=== PATIENT | female | born 1955 | race Caucasian/White ===

== ENCOUNTER 2022-09-02 12:25 | Emergency (ER) | payer MEDICAID, OTHER ==
[~2022-09-02] VITALS: Ht 162.6 cm; Wt 72.0 kg
[2022-09-02] MEDS ORDERED: MECLIZINE 25MG TABLET PO ONE (13:15)
[2022-09-02 16:03] LABS: CLARITY URINE CLEAR (CLEAR); COLOR URINE YELLOW (YELLOW); KETONES URINE NEGATIVE (NEGATIVE); LEUKOCYTE ESTERASE URINE TRACE (NEGATIVE); NITRITE URINE NEGATIVE (NEGATIVE); OCCULT BLOOD URINE NEGATIVE (NEGATIVE); PROTEIN URINE NEGATIVE (NEGATIVE); SPECIFIC GRAVITY URINE 1.009 (1.005-1.030); UROBILINOGEN URINE 0.2 E.U./dL (0.2-1.0)
[2022-09-02 16:44] LABS: BASOPHILS % 1.8 % (0.0-2.0); EOSINOPHILS % 2.8 % (0.0-5.0); HEMATOCRIT. 41.6 % (36.0-48.0); HEMOGLOBIN. 13.6 g/dL (12.0-16.0); MEAN CORPUSCULAR HEMOGLOBIN 28.8 pg (28.0-32.0); MEAN PLATELET VOLUME 10.1 fl (7.4-10.4); NEUTROPHILS % 53.4 % (40.0-76.0); PLATELET 122 x1000/uL (130-400); RED BLOOD CELL COUNT 4.73 mill/uL (4.2-5.4); RED CELL DISTRIBUTION WIDTH 14.2 % (11.6-14.6)
[2022-09-02 16:53] LABS: CHLORIDE 112 mEq/L (98-107)
[2022-09-02] MEDS ORDERED: MECL-159 MT (17:22)
[2022-09-02 18:10] VITALS: BP 183/118
== END 2022-09-02 18:11 | disposition home or self-care (01) ==
LOC: ER 12:25
DX: H81.10 Benign paroxysmal vertigo, unspecified ear (principal)
CPT/HCPCS: 36415; 70450; 71045; 80053; 81003; 84484; 85025; 99285; J8597

== ENCOUNTER 2024-08-09 18:54 | Emergency (ER) | payer OTHER ==
[~2024-08-09] VITALS: Ht 170.2 cm; Wt 86.0 kg
[~2024-08-09 18:54] MED LIST: MECL-299 MT
[2024-08-09 19:32] VITALS: TEMP 36.8; O2SAT 98
[2024-08-09 21:09] LABS: EOSINOPHILS % 2.2 % (0.0-5.0); HEMATOCRIT. 41.3 % (36.0-48.0); HEMOGLOBIN. 13.5 g/dL (12.0-16.0); LYMPHOCYTES % 27.4 % (20.0-50.0); MEAN CORPUSCULAR HEMOGLOBIN 27.1 pg (28.0-32.0); MEAN CORPUSCULAR HGB CONC 32.7 g/dL (31.0-37.0); MEAN CORPUSCULAR VOLUME 82.9 fL (81.0-99.0); MEAN PLATELET VOLUME 9.3 fl (7.4-10.4); MONOCYTES % 9.2 % (2.0-8.0); NEUTROPHILS % 60.2 % (40.0-76.0); PLATELET 132 x1000/uL (130-400); RED BLOOD CELL COUNT 4.98 mill/uL (4.2-5.4); RED CELL DISTRIBUTION WIDTH 14.9 % (11.6-14.6); WHITE BLOOD COUNT 5.9 x1000/uL (4.5-11.0)
[2024-08-09 21:16] LABS: CHLORIDE 109 mEq/L (98-107); POTASSIUM 4.1 mEq/L (3.5-5.1); SODIUM 145 mEq/L (136-145)
[2024-08-09 21:17] LABS: CALCIUM 9.1 mg/dL (8.7-10.4); CARBON DIOXIDE 31 mEq/L (21-32)
[2024-08-09 21:22] LABS: CREATININE 0.6 mg/dL (0.6-1.0); GLUCOSE 132 mg/dL (70-105); UREA NITROGEN BLOOD 11 mg/dL (9-23)
[2024-08-09 21:25] LABS: PROTHROMBIN TIME 11.5 sec (9.6-11.0)
[2024-08-09 21:37] LABS: CLARITY URINE CLEAR (CLEAR); COLOR URINE YELLOW (YELLOW); GLUCOSE URINE NEGATIVE (NEGATIVE); KETONES URINE NEGATIVE (NEGATIVE); LEUKOCYTE ESTERASE URINE TRACE (NEGATIVE); NITRITE URINE NEGATIVE (NEGATIVE); OCCULT BLOOD URINE NEGATIVE (NEGATIVE); PH URINE 7.5 (4.5-8.0); PROTEIN URINE NEGATIVE (NEGATIVE); SPECIFIC GRAVITY URINE 1.028 (1.005-1.030); UROBILINOGEN URINE 0.2 E.U./dL (0.2-1.0)
[2024-08-09] MEDS: PREDNISONE 20MG TABLET PO ONE (21:55)
[2024-08-09] MEDS: ASPIRIN 325MG EC TABLET PO ONE (21:55)
[2024-08-09] MEDS: ATORVASTATIN CALCIUM 40MG TABLET PO SCH (21:55)
[2024-08-09 21:56] LABS: BACTERIA URINE NONE SEEN; RBC URINE NONE SEEN /hpf (0-2); SQUAMOUS EPITHELIAL CELL URINE 1+ /lpf (RARE/1+); WBC URINE 0-2 /hpf (0-2)
[2024-08-09 23:19] VITALS: BP 158/90; PULSE 98; RESP 21; O2SAT 98
[2024-08-09] MEDS ORDERED: IOHEXOL-350 100 ML BOTTLE ONE (23:27)
== END 2024-08-09 23:47 | disposition short-term general hospital (02) ==
LOC: ER 18:54
DX: R51.9 Headache, unspecified (principal); E03.9 Hypothyroidism, unspecified; I11.9 Hypertensive heart disease without heart failure
CPT/HCPCS: 80048; 81003; 85025; 85610; 36415; 70496; 70498; 70450; 93005; 99291; Q9967; J7512; Z7610